=== PATIENT | male | born 1960 | race Caucasian/White ===

== ENCOUNTER 2024-05-29 07:41 | Outpatient (REF) | payer OTHER, SELFPAY ==
[2024-05-29 09:04] LABS: Hematocrit 41.2 % (42.0-52.0); Hemoglobin 14.4 g/dl (14.0-18.0); Mean Corpuscular Hemoglobin 32.7 pg (27.0-33.0); Mean Corpuscular Volume 93.6 fL (80.0-98.0); Mean Platelet Volume 9.3 fL (9.4-12.4); Platelet Count 181 X10*3/uL (160-400); Red Cell Distribution Width 11.9 % (11.0-16.0); White Blood Count 4.7 X10*3/uL (4.8-10.8)
[2024-05-29 09:26] LABS: Alanine Aminotransferase 24 U/L (0-40); Albumin Level 4.1 g/dL (3.5-5.0); Alkaline Phosphatase 65 U/L (39-117); Anion Gap 12 (12-20); Aspartate Amino Transferase 28 U/L (5-37); Bilirubin Total 0.9 mg/dL (0.0-1.0); Blood Urea Nitrogen 13 mg/dL (9-16); Calcium 8.8 mg/dL (8.4-10.2); Carbon Dioxide 25 mmol/L (22-29); Chloride 107 mmol/L (96-108); Cholesterol 178 mg/dL (<200); Estimated Glomerular Filt Rate > 60; Glucose Fasting 98 mg/dL (60-99); HDL Cholesterol 46 mg/dL (>40); LDL Cholesterol Calculated 99 mg/dL (<100); Sodium 140 mmol/L (135-145); Total Protein 6.7 g/dL (6.5-8.0); Triglycerides 165 mg/dL (<150)
[2024-05-29 12:08] LABS: Prostate Specific Antigen Scr 0.44 ng/mL (<0.05-4.0)
== END 2024-05-29 07:42 | disposition home or self-care (01) ==
LOC: HO.LAB 07:41
PROVIDERS: PCP Physician Assistant; Visit Provider Physician Assistant
DX: Z13.1 Encounter for screening for diabetes mellitus (principal); Z12.5 Encounter for screening for malignant neoplasm of prostate; E78.9 Disorder of lipoprotein metabolism, unspecified
CPT/HCPCS: 36415; 80053; 80061; 84153; 85027

== ENCOUNTER 2024-05-30 14:37 | Outpatient (AMB) | payer OTHER, SELFPAY ==
--- NOTE | 2024-05-30 14:43 | A.OFFPC_ITS ---
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 Transferring care from Dr. Mariama Avalos MD. Medical records have been requested and received. Registered Nurses Required: No Accompanied by: Self / Same As Patient Allergies No Known Allergies Allergy (Verified 05/30/24 15:01) Medication List - Last Reviewed 05/30/24 by TAQUERIA Silver hydroxyzine HCl 25 mg PO TID lisinopril 20 mg PO DAILY omeprazole 20 mg PO DAILY simvastatin 20 mg PO BEDTIME Tobacco use date assessed: 05/30/24 Dental Screening Dental Screen Date: 05/30/24 Did you have a dental visit in the last 12 months?: Yes Did you have a dental problem in the last 6 months where you did not have access to dental care?: No Was dental information given to patient?: Patient has dentist 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 Previous PCP was at the [facility]. Patient has a past medical history significant for GERD, hyperlipidemia, hypertension and gout. . Hypertension: Blood pressure acceptable today in office. Has been well controlled for quite some time with lisinopril. . Hyperlipidemia: Patient's lipid panel showing excellent control of his total cholesterol and LDL. He continues on simvastatin Vaccines: Up-to-date with COVID vaccine, tetanus vaccine, considering shingles vaccine [facility] Medical History (Updated 06/03/24 @ 07:40 by Pepito Ayon PA-C) Esophagitis determined by endoscopy Diverticulosis Heavy alcohol use Hypohidrosis Obstructive sleep apnea Gastric polyp Schatzki's ring Hx of esophageal reflux Gout Pure hypercholesterolemia Severe obesity Hemorrhoid Hypertension Surgical History S/P vasectomy Family History Mother Lung cancer Breast cancer Alzheimer disease, Onset Age: 60 Father Diabetes High blood cholesterol level FH: cholecystectomy Sister Hypercholesterolemia Daughter Thyroid disorder Son Lymphoma Social History (Updated 05/30/24 @ 15:10 by Pepito Ayon PA-C) Housing: House Alcohol intake: current Alcohol intake frequency: a few times a week Alcohol type: beer Patient Tobacco Use Status: Current everyday Tobacco user Tobacco use type: Cigarette and Smokeless Tobacco (Never) Cigarette Packs Per Day: 1 Years Smoked: 5 years service: No Current occupational status: employed Current occupation: [employer] Cognitive needs: No Hearing needs: No Vision needs: No Questionnaire PHQ-9 Over the last 2 weeks, how often have you been bothered by any of the following problems? 1. Little interest or pleasure in doing things: not at all 2. Feeling down, depressed, or hopeless: not at all 3. Trouble falling or staying asleep, or sleeping too much: not at all 4. Feeling tired or having little energy: not at all 5. Poor appetite or overeating: not at all 6. Feeling bad about yourself - or that you are a failure or have let yourself or your family down: not at all 7. Trouble concentrating on things, such as reading the newspaper or watching television: not at all 8. Moving or speaking so slowly that other people could have noticed. Or the opposite - being so fidgety or restless that you have been moving around a lot more than usual: not at all 9. Thoughts that you would be better off or of hurting yourself in some way: not at all Total score: 0 Depression Screening Interpretation: Negative Depression Screening Done: Yes 19628 - PHQ-9 Billing: Yes Source: Developed by Drs. Fred Schmidt, Astrid Dickerson, Stephen Anderson and colleagues, with an educational hiren from [employer]. Thrive Questionnaire Date Thrive assessed: 05/30/24 I am a: Patient What is your living situation today?: I have a steady place to live Within the past 12 months, did the food you bought not last and you didn't have the money to get more?: Never true Within the past 12 months, did you worry whether your food would run out before you got money to buy more?: Never true Do you have trouble paying for medicines?: No Do you have trouble getting transportation to medical appointments?: No Do you have trouble paying your heating and electricity bill?: No Do you have trouble taking care of your child, family member or friend?: No Do you have trouble with day-to-day activities such as bathing, preparing meals, shopping, managing finances, etc.?: No Are you currently unemployed and looking for a job?: No Are you interested in more education?: No Please select the resources that you would like help with: None Currently or been in a relationship where the following occur: No concerns reported THRIVE Score: 0 AUDIT C Alcohol Use Questionnaire (AUDIT-C) 1. How often do you have a drink containing alcohol?: 4 or more times a week 2. How many drinks containing alcohol do you have on a typical day when you are drinking?: 5 or 6 3. How often do you have six or more drinks on one occasion?: Less than monthly Total Score: 7 PRIETO-7 AMB Questionnaire PRIETO-7 Date PRIETO - 7 assessed: 05/30/24 Feeling nervous, anxious, or on edge: 0 = Not at all Not being able to stop or control worryin = Not at all Worrying too much about different things: 0 = Not at all Trouble relaxin = Not at all Being so restless that it is hard to sit still: 0 = Not at all Becoming easily annoyed or irritable: 0 = Not at all Feeling afraid as if something awful might happen: 0 = Not at all Total PRIETO-7 score (0-4 normal; 5-9 mild; 10-14 moderate; 15-21 severe): 0 Source: Developed by Drs. Fred Schmidt, Astrid Dickerson, Stephen Anderson and colleagues, with an educational hiren from [employer]. PRIETO-7 Assessment Billing PRIETO-7 Assessment Tool: PRIETO-7 Assessment 45224 Review of Systems Const Denies headache(s) Eyes Denies loss of vision ENT Denies vertigo, Denies dizziness, Denies headache(s) and Denies sore throat Card Denies chest pain, Denies leg edema and Denies lightheadedness Resp Denies cough, Denies hemoptysis and Denies wheezing GI Denies abdominal pain, Denies melena, Denies constipation, Denies diarrhea and Denies vomiting Denies dysuria, Denies urinary frequency and Denies urinary urgency Musc Denies arthralgias, Denies joint swelling, Denies numbness and Denies tingling Neuro Denies Abnormal speech present, Denies behavioral changes, Denies vertigo, Denies dizziness, Denies headache(s), Denies loss of vision, Denies memory loss, Denies numbness and Denies tingling Psych Denies anxiety, Denies behavioral changes, Denies depression, Denies memory loss and Denies panic attacks Errol/Lymph Denies easy bleeding and Denies easy bruising Aller/Immun Denies wheezing Physical exam (Primary Care) Vital Signs: Last Vital Signs Pulse 67 05/30/24 14:50 BP 122/80 05/30/24 14:50 Pulse Ox 97 05/30/24 14:50 Oxygen Delivery Method Room Air 05/30/24 14:50 BMI result Body Mass Index 35.6 Tobacco/Smoking Status: Tobacco use Status Tobacco use date assessed 05/30/24 05/30/24 14:59 Patient Tobacco Use Status Current everyday Tobacco 05/30/24 15:10 Tobacco use type Cigarette,Smokeless Tobacco 05/30/24 15:10 (Never) PHQ-9: PHQ-9 Score PHQ-9: Total score 0 05/30/24 14:59 Depression Screening Interpretation: Negative Thrive Assessment: Date of Thrive Assessment Date Thrive assessed 05/30/24 05/30/24 14:43 Currently or been in a relationship where the following occur: No concerns reported Const General: healthy appearing, no acute distress, alert and awake Nutritional Appearance: well nourished Orientation/consciousness: oriented to person, oriented to place and oriented to time HENMT Ears: TM's normal bilaterally General nose exam: Normal nasal mucous membranes and turbinates present Eyes Conjunctivae: conjunctivae normal Sclerae: sclerae normal Pupils: Equal, round and reactive pupils present Neck Neck: Yes no lymphadenopathy and Yes no JVD Thyroid: Thyroid normal Carotids: no bruits Resp Effort & Inspection: normal respiratory effort and not tachypneic Auscultation: no crackles, no rales, no rhonchi and no wheezes Cardio Rate: regular rate Rhythm: regular rhythm Heart sounds: no murmurs and normal S1 and S2 GI Palpation (GI): Soft to palpation, nontender, no hepatomegaly and no splenomegaly Auscultation: normal bowel sounds Skin General skin exam: no rashes or lesions noted and dry skin Neuro General: oriented to person, oriented to place and oriented to time Cranial nerves: Yes Equal, round and reactive pupils present Speech: No Abnormal speech present Gait exam (Neuro): Normal gait present Motor exam (neuro): no tremor noted Extrem Right upper extremity: full ROM Left upper extremity: full ROM Right lower extremity: full ROM; no edema Left lower extremity: full ROM; no edema Psych Mental Status: mental status grossly normal Speech and movement: Normal speech and movement present Affect: normal affect Attitude: cooperative Thought process: Normal thought process present Office Procedures Flu Questionnaire Does the patient have a severe egg allergy?: No Does the patient have severe life threatening allergies?: No Does the patient have a fever or illness today?: No Has the patient ever had Guillain-Bradford Syndrome?: No Has the patient ever had any past reaction to a flu shot?: No Immunizations Fluarix Triv 7818-0470 (PF) 45 mcg (15 mcg x 3)/0.5 mL IM syringe Performing Provider: Pepito Ayon PA-C [facility] Administered by: TAQUERIA Silver on 05/30/24 15:31 Dose Route Admin Location Dispensed Lot Number Expiration Date NDC Thermal Intelligence Analyst 0.5 mL IM Left Deltoid 0.5 mL [id number] 01/27/25 [id number] [employer] VIS Given Date VIS Provided VIS Publication Date 05/30/24 Single Vaccine 21 Eligibility Eligibility Date Funding Source Not [facility] Eligible 05/30/24 Private Coding Level of Care Code Tele Est Pt Level 4 (88567) Diagnoses Pure hypercholesterolemia E78.00 Primary hypertension I10 Hypertension type: primary hypertension Gastroesophageal reflux disease without esophagitis K21.9 Esophagitis presence: without esophagitis 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 He continues on simvastatin without any side effect. Goal LDL is to remain below 130 (2) Hypertension: Code(s): I10 - Essential (primary) hypertension Category: Medical Qualifiers: Hypertension type: primary hypertension Qualified Code(s): I10 - Essential (primary) hypertension Plan: Patient's blood pressure acceptable today in office will continue his current dose of lisinopril with goal blood pressure to remain below 140/90 (3) GERD (gastroesophageal reflux disease): Code(s): K21.9 - Gastro-esophageal reflux disease without esophagitis Category: Medical Qualifiers: Esophagitis presence: without esophagitis Qualified Code(s): K21.9 - Gastro-esophageal reflux disease without esophagitis Plan: Patient does have a history of esophagitis and esophageal rings. He does admit to drinking Will. He is taking omeprazole on a daily basis though wonders if he can taken on [id number] basis to reduce his long-term side effect risk. (4) Gout: Code(s): M10.9 - Gout, unspecified Category: Medical Qualifiers: Chronicity: chronic Gout etiology: idiopathic Gout site: foot Laterality: right Presence of tophus: without tophus Qualified Code(s): M1A.0710 - Idiopathic chronic gout, right ankle and foot, without tophus (tophi) Plan: Patient does have history of gout in his foot to which he only has 1 or 2 flares per year. He will try to reduce his alcohol intake and reduced purines in his diet. He does report prednisone has helped him to significantly during gout flares. (5) Varicella vaccination status unknown: Code(s): Z78.9 - Other specified health status Category: Medical Plan: Will check varicella antibodies (6) Class 2 obesity: Code(s): E66.812 - Obesity, class 2 Category: Medical Plan: Patient does understand his BMI is over 35 and will work on better eating habits and being more physically active to lose some weight. Orders: Orders Varicella IgG Antibody Today Z78.9 - Other specified health status Uric Acid Today M1A.0710 - Idiopathic chronic gout, right ankle and foot, without tophus (tophi) Complete Blood Count no Diff Today K21.9 - Gastro-esophageal reflux disease without esophagitis Lipid Panel Today E78.00 - Pure hypercholesterolemia, unspecified Microalbumin, Random (w Creat) Today I10 - Essential (primary) hypertension Prostate Specific Antigen Scr Today I10 - Essential (primary) hypertension, Z12.5 - Encounter for screening for malignant neoplasm of prostate Influenza [id number] Immunization 05/30/24 Z23 - Encounter for immunization Comprehensive [place]. Panel Fast Today I10 - Essential (primary) hypertension Medications: New lisinopril 20 mg PO DAILY 90 days 90 tabs 1RF K21.9 - Gastro-esophageal reflux disease without esophagitis simvastatin 20 mg PO BEDTIME 90 days 90 tabs 1RF E78.00 - Pure hypercholesterolemia, unspecified omeprazole 20 mg PO DAILY 90 days 90 caps 1RF K21.9 - Gastro-esophageal reflux disease without esophagitis Patient Instructions: Goal: Blood pressure to remain below 140/90, LDL to remain below 130 Barriers: Adherence to physical activity and healthy eating habits
[2024-05-30 14:50] VITALS: BP 122/80; PULSE 67; O2SAT 97; BMI 35.6
== END 2024-05-30 15:33 | disposition home or self-care (01) ==
LOC: HO.HMCH 14:38
PROVIDERS: PCP Internal Medicine; Visit Provider Physician Assistant
DX: E78.00 Pure hypercholesterolemia, unspecified (principal); I10 Essential (primary) hypertension; E66.812 Obesity, class 2; Z68.35 Body mass index [BMI] 35.0-35.9, adult; K21.9 Gastro-esophageal reflux disease without esophagitis; M1A.0710 Idiopathic chronic gout, right ankle and foot, without tophus (tophi); Z78.9 Other specified health status

== ENCOUNTER → 2024-05-30 14:37 | Outpatient (BNVA) | payer OTHER, SELFPAY | PROVIDERS: PCP Internal Medicine; Visit Provider Physician Assistant | DX: E78.00 Pure hypercholesterolemia, unspecified (principal); I10 Essential (primary) hypertension; K21.9 Gastro-esophageal reflux disease without esophagitis; M1A.0710 Idiopathic chronic gout, right ankle and foot, without tophus (tophi); E66.812 Obesity, class 2; Z68.35 Body mass index [BMI] 35.0-35.9, adult; Z78.9 Other specified health status; Z23 Encounter for immunization | CPT/HCPCS: 90471; 90656; 96127 ==

== ENCOUNTER 2025-01-29 08:47 | Outpatient (REF) | payer BC, SELFPAY ==
[2025-01-29 09:43] LABS: Hematocrit 40.5 % (42.0-52.0); Hemoglobin 14.0 g/dl (14.0-18.0); Mean Corpuscular HGB Conc 34.6 g/dl (31.0-36.0); Mean Corpuscular Hemoglobin 32.7 pg (27.0-33.0); Mean Corpuscular Volume 94.6 fL (80.0-98.0); NRBC Abs Auto 0.000 X10*3/uL (0.0-0.012); NRBC Pct Auto 0.0 /100WBC (0.0-0.2); Platelet Count 157 X10*3/uL (160-400); Red Blood Count 4.28 X10*6/uL (4.60-5.80); White Blood Count 6.3 X10*3/uL (4.8-10.8)
[2025-01-29 10:03] LABS: Alanine Aminotransferase 18 U/L (0-40); Albumin Level 4.2 g/dL (3.5-5.0); Alkaline Phosphatase 75 U/L (39-117); Anion Gap 13 (12-20); Aspartate Amino Transferase 34 U/L (5-37); Blood Urea Nitrogen 13 mg/dL (9-16); Calcium 8.9 mg/dL (8.4-10.2); Carbon Dioxide 23 mmol/L (22-29); Chloride 108 mmol/L (96-108); Cholesterol 182 mg/dL (<200); Estimated Glomerular Filt Rate > 60; HDL Cholesterol 45 mg/dL (>40); Potassium 4.3 mmol/L (3.3-5.1); Sodium 140 mmol/L (135-145); Total Protein 6.7 g/dL (6.5-8.0); Triglycerides 221 mg/dL (<150); Uric Acid 10.5 mg/dL (3.4-7.0)
[2025-01-29 10:51] LABS: Microalbum/Creatinine Ratio Ur 4.7 ug/mg cr (<30)
== END 2025-01-29 08:48 | disposition home or self-care (01) ==
LOC: HO.LAB 08:47
PROVIDERS: PCP Physician Assistant; Visit Provider Physician Assistant
DX: I10 Essential (primary) hypertension (principal); Z12.5 Encounter for screening for malignant neoplasm of prostate; E78.00 Pure hypercholesterolemia, unspecified; K21.9 Gastro-esophageal reflux disease without esophagitis; Z78.9 Other specified health status; M1A.0710 Idiopathic chronic gout, right ankle and foot, without tophus (tophi)
CPT/HCPCS: 36415; 80053; 80061; 82043; 82570; 84153; 84550; 85027; 86787

== ENCOUNTER 2025-02-03 09:00 | Outpatient (AMB) | payer BC, SELFPAY ==
--- NOTE | 2025-02-03 09:03 | A.OFFPC_ITS ---
Vital Signs 02/03/25 09:05 Height 5 ft 8 in Weight 238 lb BMI 36.2 BP 124/88 Blood Pressure Location Lt brachial Position Sitting Pulse 73 Pulse Source Pulse Oximeter Temp Source Temporal Artery Scan Pulse Oximetry (%) 94 Oxygen Delivery Method Room Air Intake Visit Reasons: annual exam Surgical Services Tech Required: No Accompanied by: Self / Same As Patient Allergies No Known Allergies Allergy (Verified 02/03/25 09:20) Medication List - Last Reconciled 02/03/25 by Pepito Ayon PA-C hydroxyzine HCl 25 mg PO TID lisinopril 20 mg PO DAILY 90 days omeprazole 20 mg PO DAILY 90 days simvastatin 20 mg PO BEDTIME 90 days Tobacco use date assessed: 02/03/25 Dental Screening Dental Screen Date: 02/03/25 Did you have a dental visit in the last 12 months?: No Did you have a dental problem in the last 6 months where you did not have access to dental care?: No Was dental information given to patient?: Yes HPI annual exam HPI Details Patient is a 64-year-old male here today for routine annual physical Patient has a past medical history significant for GERD, hyperlipidemia, hypertension and gout. . Hypertension: Blood pressure acceptable today in office. Has been well controlled for quite some time with lisinopril. .. Gallop: Patient does report getting a recent gout flare in his left great toe and ankle. He admits that he drinks a decent amount of alcohol per week and understands he needs to cut down to reduce his gout flares. Most recent uric acid level elevated at 10.2. He is willing to try an as needed prednisone for acute flares. Not willing to start daily medication to reduce uric acid levels. . Hyperlipidemia: Patient's lipid panel showing excellent control of his total cholesterol and LDL. He continues on simvastatin. Vaccines: Up-to-date with COVID vaccine, tetanus vaccine, considering shingles vaccine Colorectal cancer screening: Colonoscopy done in 2019, polyp found, repeat 5 years Laboratory Tests 05/29/24 01/29/25 01/29/25 08:03 09:03 09:05 RBC 4.40 L 4.28 L Hgb 14.4 14.0 Creatinine 0.98 Uric Acid 10.5 H Triglycerides 165 H 221 H Cholesterol 178 LDL Cholesterol, C alc 99 PSA Screen 0.44 0.70 Urine Microalbumin 13.0 VZV IgG Antibody 34.80 [facility] Medical History Esophagitis determined by endoscopy Diverticulosis Heavy alcohol use Hypohidrosis Obstructive sleep apnea Gastric polyp Schatzki's ring Hx of esophageal reflux Gout Pure hypercholesterolemia Severe obesity Hemorrhoid Hypertension Surgical History S/P vasectomy Family History Mother Lung cancer Breast cancer Alzheimer disease, Onset Age: 60 Father Diabetes High blood cholesterol level FH: cholecystectomy Sister Hypercholesterolemia Daughter Thyroid disorder Son Lymphoma Social History (Updated 02/03/25 @ 09:26 by Pepito Ayon PA-C) Housing: House Alcohol intake: current Alcohol intake frequency: a few times a week Alcohol type: beer Patient Tobacco Use Status: Current everyday Tobacco user Tobacco use type: Cigarette and Smokeless Tobacco (Never) Cigarette Packs Per Day: 1 Years Smoked: 5 years service: No Current occupational status: employed Current occupation: [employer] Cognitive needs: No Hearing needs: No Vision needs: No Questionnaire PHQ-9 Over the last 2 weeks, how often have you been bothered by any of the following problems? 1. Little interest or pleasure in doing things: not at all 2. Feeling down, depressed, or hopeless: not at all 3. Trouble falling or staying asleep, or sleeping too much: not at all 4. Feeling tired or having little energy: not at all 5. Poor appetite or overeating: not at all 6. Feeling bad about yourself - or that you are a failure or have let yourself or your family down: not at all 7. Trouble concentrating on things, such as reading the newspaper or watching television: not at all 8. Moving or speaking so slowly that other people could have noticed. Or the opposite - being so fidgety or restless that you have been moving around a lot more than usual: not at all 9. Thoughts that you would be better off or of hurting yourself in some way: not at all Total score: 0 Depression Screening Interpretation: Negative Depression Screening Done: Yes 26708 - PHQ-9 Billing: Yes Source: Developed by Drs. Astrid Nelson, Stephen Anderson and colleagues, with an educational hiren from [employer] ([employer] Thrive Questionnaire Date Thrive assessed: 02/03/25 I am a: Patient What is your living situation today?: I have a steady place to live THRIVE Score: 0 AUDIT C Alcohol Use Questionnaire (AUDIT-C) 1. How often do you have a drink containing alcohol?: 4 or more times a week 2. How many drinks containing alcohol do you have on a typical day when you are drinking?: 5 or 6 3. How often do you have six or more drinks on one occasion?: Less than monthly Total Score: 7 PRIETO-7 AMB Questionnaire PRIETO-7 Date PRIETO - 7 assessed: 02/03/25 Feeling nervous, anxious, or on edge: 0 = Not at all Not being able to stop or control worryin = Not at all Worrying too much about different things: 0 = Not at all Trouble relaxin = Not at all Being so restless that it is hard to sit still: 0 = Not at all Becoming easily annoyed or irritable: 0 = Not at all Feeling afraid as if something awful might happen: 0 = Not at all Total PRIETO-7 score (0-4 normal; 5-9 mild; 10-14 moderate; 15-21 severe): 0 Source: Developed by Drs. Fred Schmidt, Astrid Dickerson, Stephen Anderson and colleagues, with an educational hiren from [employer] ([employer] PRIETO-7 Assessment Billing PRIETO-7 Assessment Tool: PRIETO-7 Assessment 48820 Review of Systems Const Denies body aches, Denies chills, Denies excessive sweating, Denies fatigue, Denies fever(s) and Denies headache(s) Eyes Denies blurry vision ENT Denies dysphagia, Denies vertigo, Denies dizziness, Denies headache(s), Denies hearing loss and Denies tinnitus Card Denies chest pain, Denies chest pain with activity, Denies syncope, Denies irregular heart rhythm and Denies dyspnea Resp Denies chest congestion, Denies cough, Denies hemoptysis, Denies dyspnea and De nies wheezing GI Denies abdominal pain, Denies melena, Denies hematochezia, Denies coffee ground emesis, Denies dysphagia, Denies diarrhea, Denies nausea and Denies vomiting Denies difficulty urinating, Denies dysuria, Denies urinary frequency, Denies urinary hesitancy and Denies urinary urgency Musc Denies arthralgias, Denies limited range of motion, Denies muscle cramps and Denies muscle weakness Skin/Breast Denies rash and Denies skin ulcer Neuro Denies Abnormal speech present, Denies confusion, Denies vertigo, Denies dizziness, Denies syncope, Denies headache(s), Denies memory loss and Denies seizure-like activity Psych Denies anxiety, Denies confusion, Denies depression, Denies memory loss, Denies panic attacks and Denies paranoia Endo Denies excessive sweating, Denies fatigue, Denies flushing, Denies polydipsia and Denies polyuria Aller/Immun Denies wheezing Physical exam (Primary Care) Vital Signs: Last Vital Signs Pulse 73 02/03/25 09:05 BP 124/88 02/03/25 09:05 Pulse Ox 94 02/03/25 09:05 Oxygen Delivery Method Room Air 02/03/25 09:05 BMI result Body Mass Index 36.2 Tobacco/Smoking Status: Tobacco use Status Tobacco use date assessed 02/03/25 02/03/25 09:12 Patient Tobacco Use Status Current everyday Tobacco 02/03/25 09:12 Tobacco use type Cigarette,Smokeless Tobacco 02/03/25 09:12 (Never) PHQ-9: PHQ-9 Score PHQ-9: Total score 0 02/03/25 09:12 Depression Screening Interpretation: Negative Thrive Assessment: Date of Thrive Assessment Date Thrive assessed 02/03/25 02/03/25 09:12 Const General: cooperative, comfortable, no acute distress, alert and awake; No confusion Orientation/consciousness: oriented to person, oriented to place, patient oriented x3 and No confusion HENMT Head: Yes normocephalic Ears: external ears normal and TM's normal bilaterally Face and sinus: No sinus tenderness Mouth: Normal oral and palatal mucosa present and tongue normal Teeth and gingiva: dentition normal and gingiva normal Throat: Yes posterior oropharynx normal, Yes tonsils normal and Yes uvula midline Eyes Conjunctivae: conjunctivae normal Sclerae: sclerae normal Pupils: Equal, round and reactive pupils present EOM: EOMs intact bilaterally Direct Ophthalmoscopy: No no photophobia Neck Neck: Yes no lymphadenopathy, No tender and Yes no JVD Thyroid: Thyroid normal Carotids: no bruits Chest Chest palpation & inspection: no tenderness Resp Effort & Inspection: normal respiratory effort, no audible wheezes, not labored and no stridor Auscultation: no crackles, no rales, no rhonchi and no wheezes Cardio Jugular venous distension: no JVD Rate: regular rate, not bradycardic and not tachycardic Rhythm: regular rhythm Bruits: no carotid bruits Peripheral pulses: Peripheral pulses 2+ throughout GI Inspection: Yes normal to inspection, No abdominal wall ecchymosis and No visible herniation Palpation (GI): Soft to palpation, nontender, no guarding, not rigid and No hepatosplenomegaly present Auscultation: normoactive bowel sounds General: Yes no CVA tenderness Back/Spine/Pelvis Back: no CVA tenderness and No back tenderness Cervical Spine: cervical ROM normal Thoracic/Lumbar Spine: thoracic and lumbar spine normal to inspection, straight leg raise negative bilaterally, No thoraco-lumbar ROM limited and No lumbar spinal tenderness Skin Lesions: no lesions Rashes: no rashes Wounds: no wounds Neuro General: oriented to person, oriented to place, patient oriented x3, CN's II-XI intact bilaterally and No confusion Cranial nerves: Yes Equal, round and reactive pupils present and Yes Normal accommodation reflex present Cognition (Neuro): normal cognition Speech: No Abnormal speech present Gait exam (Neuro): Normal gait present Motor exam (neuro): 5/5 motor strength present throughout Extrem Right upper extremity: full ROM; no cyanosis Left upper extremity: full ROM; no cyanosis Right lower extremity: no edema Left lower extremity: no edema Psych Appearance: grossly normal Mental Status: mental status grossly normal Affect: normal affect Attitude: cooperative Thought process: Normal thought process present Coding Level of Care Code Est Pt Prev Care 40-64y(14900) Diagnoses Annual physical exam Z00.00 Pure hypercholesterolemia E78.00 Primary hypertension I10 Hypertension type: primary hypertension Gastroesophageal reflux disease without esophagitis K21.9 Esophagitis presence: without esophagitis 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 Gout site: foot Gout etiology: idiopathic Chronicity: chronic Laterality: right Presence of tophus: without tophus Class 2 obesity E66.812 History of colon polyps Z86.0100 Additional Codes PRIETO-7 Assessment Billing - PRIETO-7 Assessment Tool: PRIETO-7 Assessment 63818 ([id number]) PHQ-9 - 47072 - PHQ-9 Billing: Yes ([id number]) Assessment & Plan Assessment & Plan (1) Annual physical exam: Code(s): Z00.00 - Encounter for general adult medical examination without abnormal findings Category: Medical Plan: As per HPI (2) Pure hypercholesterolemia: Code(s): E78.00 - Pure hypercholesterolemia, unspecified Category: Medical Plan: Patient's most recent fasting lipid panel showing excellent control of his total cholesterol and LDL. He continues on simvastatin without any side effect. Goal LDL is to remain below 130 (3) Hypertension: Code(s): I10 - Essential (primary) hypertension Category: Medical Qualifiers: Hypertension type: primary hypertension Qualified Code(s): I10 - Essential (primary) hypertension Plan: Patient's blood pressure acceptable today in office will continue his current dose of lisinopril with goal blood pressure to remain below 140/90 (4) GERD (gastroesophageal reflux disease): Code(s): K21.9 - Gastro-esophageal reflux disease without esophagitis Category: Medical Qualifiers: Esophagitis presence: without esophagitis Qualified Code(s): K21.9 - Gastro-esophageal reflux disease without esophagitis Plan: Patient does have a history of esophagitis and esophageal rings. He does admit to drinking Will. He is taking omeprazole on a daily basis though wonders if he can taken on [id number] basis to reduce his long-term side effect risk. (5) Gout: Code(s): M10.9 - Gout, unspecified Category: Medical Qualifiers: Gout site: foot Gout etiology: idiopathic Chronicity: chronic Laterality: right Presence of tophus: without tophus Qualified Code(s): M1A.0710 - Idiopathic chronic gout, right ankle and foot, without tophus (tophi) Plan: Patient does have history of gout in his foot to which he only has 3 for flares per year. He is interested in having on hand prednisone in case of a flare.. He will try to reduce his alcohol intake and reduced purines in his diet. He does report prednisone has helped him to significantly during gout flares. (6) Class 2 obesity: Code(s): E66.812 - Obesity, class 2 Category: Medical Plan: Patient does understand his BMI is over 35 and will work on better eating habits and being more physically active to lose some weight. (7) History of colon polyps: Code(s): Z86.0100 - Personal history of colon polyps, unspecified Category: Medical Plan: Patient is due for colonoscopy, last colonoscopy done in 2019 has a history of colon polyps Orders: Orders Lipid Panel Today E78.00 - Pure hypercholesterolemia, unspecified Comprehensive Vista. Panel Fast Today I10 - Essential (primary) hypertension Complete Blood Count no Diff Today K21.9 - Gastro-esophageal reflux disease without esophagitis Referrals Gastroenterology Referral Z86.0100 - Personal history of colon polyps, unspecified Medications: New prednisone 40 mg (2 x 20 mg) PO DAILY 6 tabs 0RF 3 days M1A.0710 - Idiopathic chronic gout, right ankle and foot, without tophus (tophi) Refilled lisinopril 20 mg PO DAILY 90 tabs 1RF 90 days K21.9 - Gastro-esophageal reflux disease without esophagitis simvastatin 20 mg PO BEDTIME 90 tabs 1RF 90 days E78.00 - Pure hypercholesterolemia, unspecified Patient Instructions: Goal: Blood pressure to remain below 140/90, LDL to be below 130 Barriers: Adherence to physical activity and healthy eating habits
[2025-02-03 09:05] VITALS: BP 124/88; PULSE 73; O2SAT 94; BMI 36.2
== END 2025-02-03 09:44 | disposition home or self-care (01) ==
LOC: HO.HMCH 09:01
PROVIDERS: PCP Physician Assistant; Visit Provider Physician Assistant
DX: Z00.00 Encounter for general adult medical examination without abnormal findings (principal); E78.00 Pure hypercholesterolemia, unspecified; E66.812 Obesity, class 2; Z68.35 Body mass index [BMI] 35.0-35.9, adult; I10 Essential (primary) hypertension; K21.9 Gastro-esophageal reflux disease without esophagitis; M1A.0710 Idiopathic chronic gout, right ankle and foot, without tophus (tophi); Z86.0100 Personal history of colon polyps, unspecified

== ENCOUNTER → 2025-02-03 09:00 | Outpatient (BNVA) | payer BC, SELFPAY | PROVIDERS: PCP Physician Assistant; Visit Provider Physician Assistant | DX: Z00.00 Encounter for general adult medical examination without abnormal findings (principal); K21.9 Gastro-esophageal reflux disease without esophagitis; I10 Essential (primary) hypertension; E78.00 Pure hypercholesterolemia, unspecified; M1A.0710 Idiopathic chronic gout, right ankle and foot, without tophus (tophi); E66.812 Obesity, class 2; Z68.36 Body mass index [BMI] 36.0-36.9, adult; Z86.0100 Personal history of colon polyps, unspecified | CPT/HCPCS: 96127 ==

== ENCOUNTER 2025-05-20 08:10 | Outpatient (AMB) | payer BC, SELFPAY ==
--- NOTE | 2025-05-20 08:14 | A.OFFVIS_ITS ---
Vital Signs 05/20/25 08:16 Height 5 ft 8 in Weight 240 lb BMI 36.5 BP 106/70 Blood Pressure Location Lt brachial Position Sitting Pulse 66 Pulse Oximetry (%) 98 Oxygen Delivery Method Room Air Intake Visit Reasons: [place] screening Intake Note: Patient new consult for pre Colonoscopy screening Patient cc: hx of rectal bleeding in the pass. Denies any other GI issue for today visit. Clinical Practice Consultant Required: No Accompanied by: Self / Same As Patient Allergies No Known Allergies Allergy (Verified 05/20/25 08:14) Medication List - Last Reconciled 05/20/25 by Tamy Umaña CNP lisinopril 20 mg PO DAILY 90 days omeprazole 20 mg PO DAILY 90 days simvastatin 20 mg PO BEDTIME 90 days HPI HPI [place] screening: Details: Patient is a 64-year-old male with PMH of obesity, hypertension, hyperlipidemia. Referred by PCP for pre colonoscopy screening. He has a history of multiple prior colonoscopies (estimated five total, all at [facility], most recent ~5 years ago), with polyp removal only at the first procedure and none on subsequent exams. He reports regular bowel movements, typically twice daily, without diarrhea or constipation. Occasionally, he observes small amounts of blood when wiping, though he denies overt rectal bleeding or melena. He has a history of internal hemorrhoids, status post hemorrhoidectomy approximately three years ago, with no recent significant pain or pruritus. HIs weight has remained stable, fluctuating within a 5-10 lb range. Remote history of esophageal Schatzki?s ring requiring prior esophageal balloon dilations; rare intermittent regurgitation episodes reported in the distant past, but no recent dysphagia or reflux symptoms. Continues omeprazole 20mg QD for esophageal symptoms, well tolerated. No personal or family history of GI malignancy. Medical comorbidities include hypertension, hyperlipidemia, and gout. Patient denies: fever/chills, n/v, appetite changes, dysphasia, unintentional wt loss, ab pain. Social hx: -ETOH use;beer, 3?4 times/week, 2?5 drinks per session -rare marijuana use, denies other recreational drug use -former smoker, cessation at age 21 - family hx as below -denies personal hx of CA -denies significant cardiopulmonary history -tolerated anesthesia in the past without difficulty. FOR[facility]LY [facility], [facility] Medical History (Updated 05/20/25 @ 08:44 by Tamy Umaña CNP) Colon cancer screening Esophagitis determined by endoscopy Diverticulosis Heavy alcohol use Hypohidrosis Obstructive sleep apnea Gastric polyp Schatzki's ring Hx of esophageal reflux Gout Pure hypercholesterolemia Severe obesity Hemorrhoid Hypertension Surgical History (Updated 05/20/25 @ 08:27 by Lilli Brandon) Hx of esophagogastroduodenoscopy Hx of colonoscopy S/P vasectomy Family History Mother Lung cancer Breast cancer Alzheimer disease, Onset Age: 60 Father Diabetes High blood cholesterol level FH: cholecystectomy Sister Hypercholesterolemia Daughter Thyroid disorder Son Lymphoma Social History Housing: House Alcohol intake: current Alcohol intake frequency: a few times a week Alcohol type: beer Patient Tobacco Use Status: Current everyday Tobacco user Tobacco use type: Cigarette and Smokeless Tobacco (Never) Cigarette Packs Per Day: 1 Years Smoked: 5 years service: No Current occupational status: employed Current occupation: [employer] Cognitive needs: No Hearing needs: No Vision needs: No Review of Systems Const Reports as per HPI ENT Reports as per HPI Card Reports as per HPI Resp Reports as per HPI GI Reports as per HPI Reports as per HPI Physical Exam Vital Signs: Oxygen Delivery Method Room Air 05/20/25 08:16 BMI result Body Mass Index 36.5 Const General: healthy appearing, no acute distress and well developed Nutritional Appearance: average body habitus Orientation/consciousness: patient oriented x3 HEENT Head: Yes normal to inspection, Yes normocephalic and Yes atraumatic Face and sinus: Yes normal facial exam Eyes General: appearance normal, both eyes and all related structures Neck Neck: Yes normal visual inspection Resp Effort & Inspection: normal respiratory effort, able to speak in complete sentences, no tracheal deviation and symmetric chest movement Cardio Jugular venous distension: no JVD GI Inspection: Yes obesity Auscultation: normal bowel sounds Neuro General: patient oriented x3 Gait exam (Neuro): Normal gait present Psych Appearance: grossly normal Mental Status: mental status grossly normal Speech and movement: Normal speech and movement present Affect: normal affect Attitude: cooperative Thought process: Normal thought process present Thought content: Normal thought content present Insight: Good insight present (Psych) Judgement: Good judgement present (Psych) Assessment & Plan Assessment & Plan (1) Colon cancer screening: Code(s): Z12.11 - Encounter for screening for malignant neoplasm of colon Category: Medical Plan: Due for polyp surveillance colonoscopy Medications: -prescriptions for laxative tablets and PEG sent to pharmacy; instructions on clear liquid diet given. Patient educated on scheduling process, procedure preparation, including avoiding certain foods and ensuring clear liquid intake Advised on necessity for ride post-procedure due to sedation. (2) GERD (gastroesophageal reflux disease): Code(s): K21.9 - Gastro-esophageal reflux disease without esophagitis Category: Medical Qualifiers: Esophagitis presence: without esophagitis Qualified Code(s): K21.9 - Gastro-esophageal reflux disease without esophagitis Plan: Remote history, no current dysphagia but due diligence for rare recurrence Additional Testing: Upper endoscopy scheduled concurrent with colonoscopy. Medication Management: Continue omeprazole 20 mg qAM, on empty stomach; no change at this time. Lifestyle Recommendations: None specified; continue current practices. Follow-Up: Review EGD findings after procedure. (3) Hemorrhoid: Code(s): K64.9 - Unspecified hemorrhoids Category: Medical Qualifiers: Hemorrhoid type: unspecified Qualified Code(s): K64.9 - Unspecified hemorrhoids Plan: Occasional minor blood with wiping, history of previous surgery, no recurrent symptoms. Additional Testing: Direct visualization during colonoscopy. Medication Management: None indicated currently. Lifestyle Recommendations: Maintain bowel regularity; avoid straining. Follow-Up: As needed if symptoms recur. Plan Follow-up after endoscopy or sooner as needed Time: I spent a total of 21 minutes on the date of encounter which includes: Preparing to see the patient (reviewed previous documentation, test results and medical history) Performing a medically appropriate exam and/or evaluation Ordering medications, tests, and procedures Documenting clinical information in the health record Orders: Referrals GI Procedure Notification K21.9 - Gastro-esophageal reflux disease without esophagitis, Z12.11 - Encounter for screening for malignant neoplasm of colon, Z86.0100 - Personal history of colon polyps, unspecified Medications: New bisacodyl Take per colonoscopy instructions 20 mg (4 x 5 mg) PO ONCE 4 tabs 0RF simethicone (Gas Relief (simethicone)) per colonoscopy prep instructions 500 mg (4 x 125 mg) PO ONCE 4 caps 0RF abdominal distention peg 3350-electrolytes [id number] -5.86 gram until fecal effluent is clear 240 mL PO ONCE 4,000 mL 0RF Coding Level of Care Code New Pt New Pt Level 2 (60925) Patient Type New Diagnoses Colon cancer screening Z12.11 Gastroesophageal reflux disease without esophagitis K21.9 Esophagitis presence: without esophagitis Hemorrhoids, unspecified hemorrhoid type K64.9 Hemorrhoid type: unspecified
[2025-05-20 08:16] VITALS: BP 106/70; PULSE 66; O2SAT 98; BMI 36.5
== END 2025-05-20 08:47 | disposition home or self-care (01) ==
LOC: HO.HGI 08:11
PROVIDERS: PCP Physician Assistant; Visit Provider Nurse Practitioner Family
DX: Z01.818 Encounter for other preprocedural examination (principal); Z12.11 Encounter for screening for malignant neoplasm of colon; K21.9 Gastro-esophageal reflux disease without esophagitis; K64.9 Unspecified hemorrhoids
CPT/HCPCS: S0285

== ENCOUNTER 2025-07-22 09:08 | Day surgery (SDC) | payer BC, SELFPAY ==
--- NOTE | 2025-07-17 13:48 | HO.ANESPROP2 ---
Documented by User: Yuly Guerrero NP 07/17/25 13:49 HPI - Anesthesia Eval Consult details Narrative: 65yo M for Upper Endoscopy and Colonoscopy Heavy ETOH use PMFSH Active Problems Active Problems: All Active Problems Hemorrhoid (Acute) Colon cancer screening (Acute) Annual physical exam (Acute) History of colon polyps (Acute) Class 2 obesity (Acute) Varicella vaccination status unknown (Acute) Gout (Acute) GERD (gastroesophageal reflux disease) (Acute) Pure hypercholesterolemia (Acute) Hypertension (Acute) Borderline high cholesterol (Acute) Screening PSA (prostate specific antigen) (Acute) Screening for diabetes mellitus (DM) (Acute) Past Medical History Medical History Colon cancer screening Esophagitis determined by endoscopy Diverticulosis Heavy alcohol use Hypohidrosis Obstructive sleep apnea Gastric polyp Schatzki's ring Hx of esophageal reflux Gout Pure hypercholesterolemia Severe obesity Hemorrhoid Hypertension Family History Family History Mother Lung cancer Breast cancer Alzheimer disease, Onset Age: 60 Father Diabetes High blood cholesterol level FH: cholecystectomy Sister Hypercholesterolemia Daughter Thyroid disorder Son Lymphoma Surgical History Surgical History Hx of esophagogastroduodenoscopy Hx of colonoscopy S/P vasectomy Social History Social History Housing: House Alcohol intake: current Alcohol intake frequency: a few times a week Alcohol type: beer Patient Tobacco Use Status: Never used Tobacco Tobacco use type: Cigarette and Smokeless Tobacco (Never) Cigarette Packs Per Day: 1 Years Smoked: 5 years Use of substances other than those prescribed or required for medical reasons: No Advance Directives: No Advance Directives Information Provided: Yes service: No Current occupational status: employed Current occupation: [employer] Cognitive needs: No Hearing needs: No Vision needs: No Meds Allergies Allergy/AdvReac Type Severity Reaction Status Date / Time No Known Allergies Allergy Verified 07/22/25 09:29 Exam Pertinent Lab Results Pertinent Lab Results: Laboratory Tests 01/29/25 09:05 WBC 6.3 Hgb 14.0 Hct 40.5 L Plt Count 157 L Sodium 140 Potassium 4.3 Chloride 108 Carbon Dioxide 23 BUN 13 Creatinine 0.98 Laboratory Tests 01/29/25 09:05 Total Bilirubin 0.9 AST 34 ALT 18 Alkaline Phosphatase 75 Total Protein 6.7 Albumin 4.2 Assessment and Plan Assessment Anesthesia Assessment: Chart Reviewed Documented by User: Pierre Hernandez MD 07/22/25 11:09 PMF Past Medical History Medical History Colon cancer screening Esophagitis determined by endoscopy Diverticulosis Heavy alcohol use Hypohidrosis Obstructive sleep apnea Gastric polyp Schatzki's ring Hx of esophageal reflux Gout Pure hypercholesterolemia Severe obesity Hemorrhoid Hypertension Family History Family History Mother Lung cancer Breast cancer Alzheimer disease, Onset Age: 60 Father Diabetes High blood cholesterol level FH: cholecystectomy Sister Hypercholesterolemia Daughter Thyroid disorder Son Lymphoma Family history of problems with anesthesia: No Surgical History Surgical History Hx of esophagogastroduodenoscopy Hx of colonoscopy S/P vasectomy History of Problems with Anesthesia: No Social History Social History Housing: House Alcohol intake: current Alcohol intake frequency: a few times a week Alcohol type: beer Patient Tobacco Use Status: Never used Tobacco Tobacco use type: Cigarette and Smokeless Tobacco (Never) Cigarette Packs Per Day: 1 Years Smoked: 5 years Use of substances other than those prescribed or required for medical reasons: No Advance Directives: No Advance Directives Information Provided: Yes service: No Current occupational status: employed Current occupation: [employer] Cognitive needs: No Hearing needs: No Vision needs: No Meds Allergies Allergy/AdvReac Type Severity Reaction Status Date / Time No Known Allergies Allergy Verified 07/22/25 09:29 Exam Airway Mallampati Class: II TM Dist: >3cm Neck ROM: Full Loose/Missing/Broken Teeth: Yes Assessment and Plan Assessment Anesthesia Assessment: Anesthesia Plan Discussed Final Anesthetic Review Family History of Problems with Anesthesia: No History of Problems with Anesthesia: No NPO: Yes ASA Class: III Final Preanesthetic Review: No Changes in Pt Med Stat, Meds/Allgs Chart Reviewed, Consent Obtained/Reviewed and Anes Risks/Benef Reviewed Patient Risk: Intermediate Procedure Risk: Low Anesthetic Plan Anesthetic Plan: MAC: Disposition: Standard PACU
[2025-07-18 13:57] VITALS: BMI 36.5
[2025-07-22 09:31] VITALS: BMI 36.9
[2025-07-22 09:33] VITALS: BP 142/86; PULSE 70; RESP 18; TEMP 36.1; O2SAT 97
[2025-07-22] MEDS: Lactated Ringers 1,000 ML 100 ML IVCONT (09:48)
--- NOTE | 2025-07-22 10:37 | MHC.SHP ---
Pre-Procedural Eval Section A - 24 Hr Update-Section A only Date of Service: 07/22/25 Section B - Complete if H&P > 30 days Chief Complaint: gerd,hx colon polyps Details of Present Illness: Colon cancer screening Esophagitis determined by endoscopy Diverticulosis Heavy alcohol use Hypohidrosis Obstructive sleep apnea Gastric polyp Schatzki's ring Hx of esophageal reflux Gout Pure hypercholesterolemia Severe obesity Hemorrhoid Hypertension Surgical History (Updated 05/20/25 @ 08:27 by Lilli Brandon) Hx of esophagogastroduodenoscopy Hx of colonoscopy S/P vasectomy Present Medications: see Short Stay Collaborative assessment Allergies: Allergies Allergy/AdvReac Type Severity Reaction Status Date / Time No Known Allergies Allergy Verified 07/22/25 09:29 Review of Systems Review of Systems Comment: Ten point ROS negative Exam Exam Comment: Gen appear: No acute distress HEENT: no icterus Chest: No overt resp distress Abd: soft, nontender, nondistended Psych: Stable affect, answering questions appropriately Neuro: A/Ox3 noted to move all extremities spontaneously Ext: no peripheral edema Plan Diagnosis/Plan: Unchanged I have reviewed the history and physical and performed a pertinent physical examination on my patient. No changes have occurred unless specified. Time Spent With Patient Time: Total time managing care of this patient today ____ minutes.
[2025-07-22 12:29] VITALS: BP 138/82; PULSE 68; RESP 14; TEMP 36.4; O2SAT 96
--- NOTE | 2025-07-22 12:40 | P.OPN-COLO_ITS ---
Colonoscopy Operative Note Operative Note Date of Service: 07/22/25 Narrative: Procedure: Upper endoscopy and colonoscopy Indication: r/o BE, hx of polyps Endoscopist: Bhargavi Martinez MD Anesthesia Provider: Dr Shahla Johns Anesthesia type: MAC Instrument: [id number] and [id number] EGD Procedure:?? The procedure, indications, preparation and potential complications were reviewed with the patient, who indicated understanding and gave written informed consent to proceed. The endoscope was introduced through the mouth, and advanced to the 2nd part of the duodenum. The mucosa was carefully examined on slow withdrawal of the endoscope. The patient tolerated the procedure well. There were no immediate complications.? EGD Findings:? * Esophagus:? Normal esophageal mucosa was noted. The Z-line was at 37 cm with SCM extending up to 35 cm. Cold forceps biopsies were taken from GE junction to rule out bob's esophagus. * Stomach:?Too numerous to count polyps in the fundus and body of the stomach. Larger polyps measuring 10-15 mm were removed with cold snare and collected in christiansen net to retrieve. Retroflexion was performed in the cardia. Random cold forceps biopsies were taken from the stomach. * Duodenum:? Diffuse edema and erythema of the duodenal bulb. Remaining mucosa was normal to the extent examined. Cold forceps biopsies were taken from the duodenal bulb for histology. Colonoscopy Procedure:? The patient was then turned for the colonoscopy. An abdominal binder was placed on the lower abdomen A digital rectal exam was performed which was abnormal for external hemorrhoids.? A distal attachment cap was affixed to the tip of the scope and the colonoscope was then inserted through the anus and advanced through the colon and advanced to the cecum at 75 cm and terminal ileum.? Appendiceal orifice and ileocecal valve were identified. Mucosa was carefully examined under high definition white light as the instrument was slowly withdrawn in a retrograde panoramic fashion. Retroflexion was performed in ascen ding colon and rectum. There was a hook like turn at 30 cm in the sigmoid colon which was maneuvered by utilizing a LLQ lift otherwise the procedure was not difficult. The quality of the prep was BBPS: 2+3+2 = adequate Withdrawal time 10 minutes Limitations: No limitations Findings: Mucosa: Normal colon and terminal ileum mucosa. Protruding lesions: * One sessile polyp of size 6 mm in sigmoid colon. Cold snare polypectomy was performed. The polyp was completely removed and retrieved. * Small internal hemorrhoids without stigmata of recent bleeding. Excavated lesions: * [id number] diverticulosis Impression: 1. R/o BE (biopsy) 2. Gastric polyps (polypectomy) 3. Duodenitis (biopsy) 4. Normal colon and terminal ileum mucosa 5. Total 1 polyp removed 6. Diverticulosis 7. Internal and external hemorrhoids Recommendations:?? * Follow-up path results * Avoid NSAIDs * H Pylori treatment if biopsies + * Repeat EGD in 6 months if gastric polyps are hyperplastic * Cont PPI * Repeat colonoscopy for CRC screening in 7 years.
[2025-07-22 12:44] VITALS: BP 149/87; PULSE 67; RESP 16; TEMP 36.4; O2SAT 96
== END 2025-07-22 13:14 | disposition home or self-care (01) ==
PROVIDERS: PCP Physician Assistant; Visit Provider Internal Medicine
PROC: (CPT 45385; principal; 2025-07-22 11:30)
DX: Z12.11 Encounter for screening for malignant neoplasm of colon (principal); Z86.0100 Personal history of colon polyps, unspecified; K21.00 Gastro-esophageal reflux disease with esophagitis, without bleeding; K31.7 Polyp of stomach and duodenum; K64.8 Other hemorrhoids; K57.30 Diverticulosis of large intestine without perforation or abscess without bleeding; K64.4 Residual hemorrhoidal skin tags; K63.5 Polyp of colon
CPT/HCPCS: 45385; 43239; 43251; 88305; 88313; 88342; J2003; J2250; J2704

== ENCOUNTER → 2025-07-22 09:08 | Outpatient (BNV) | payer BC, SELFPAY | PROVIDERS: PCP Physician Assistant; Visit Provider Internal Medicine | DX: Z12.11 Encounter for screening for malignant neoplasm of colon (principal); K63.5 Polyp of colon; K57.90 Diverticulosis of intestine, part unspecified, without perforation or abscess without bleeding; K64.8 Other hemorrhoids; R10.9 Unspecified abdominal pain; K31.7 Polyp of stomach and duodenum; K29.80 Duodenitis without bleeding | CPT/HCPCS: 43251; 45385 ==